=== PATIENT | female | born 1965 | race Caucasian/White ===

== ENCOUNTER 2016-10-06 15:00 | Emergency (ER) | payer OTHER ==
[~2016-10-06] VITALS: Ht 167.6 cm; Wt 64.4 kg
[2016-10-06 15:05] VITALS: BP 148/88
--- NOTE | 2016-10-06 15:30 | ED SKIN/ALLERGY COMPLAINT ---
History of Present Illness General Chief Complaint: Allergy Symptoms Stated Complaint: HIVES, ITCHY THORAT Source: patient, old records Exam Limitations: no limitations Vital Signs & Intake/Output Vital Signs & Intake/Output Vital Signs Date Time Temp Pulse Resp B/P Pulse O2 O2 Flow FiO2 Ox Delivery Rate 10/06 1630 Room Air 10/06 1505 99.1 97 20 148/88 98 Room Air Allergies Coded Allergies: erythromycin base (UNKNOWN 10/06/16) tree nut (ANAPHYLAXIS 10/06/16) codeine (GI UPSET, RASH 10/06/16) Uncoded Allergies: RAW FRUIT SOY CAROTTS (Severe, ANAPHYLAXIS 03/16/13) TREES GRASS DUST MITES CATS HAMSTERS RABBITS (ASTHMA, SWELLING 03/16/13) Reconcile Medications Methylprednisolone. (Medrol) 4 MG TAB.DS.PK 1 DP PO AD ALLERGIC REACTION 6 on day 1 then reduce by one tablet daily until gone Triage Note: PT STATES SHE HAS HIVES, ITCHING AND SCRATCHY THROAT AFTER EATING AT [facility]. STATES SHE IS ALLERGIC TO TREE NUTS, SOY PROTEIN, WHEY, RAW FRUIT. NO HIVES NOTED AT TRIAGE. PT C/O H/A ALSO Triage Nurses Notes Reviewed? yes Onset: Abrupt Duration: hour(s): (1), intermittent Timing: recent history Severity: moderate Severity Numbers: 5 Location: extremities No Modifying Factors: none Associated Symptoms: DENIES HPI: 51-year-old female with history of anemia asthma presents complaining of a one- hour history of a scratchy itchy throat associated with intermittent hives to her arms since eating at [employer] one hour ago when she had a hot dog mozzarella sticks. 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 She denies any chest tightness pain shortness of breath nausea vomiting or diarrhea. Patient states that she was driving home and came here instead when the symptoms came on. She is not taken anything for her symptoms yet. She states the hives have since resolved. She denies any facial swelling difficulty swallowing or difficulty breathing. No modifying factors or associated symptoms otherwise. Past History Travel History Traveled to [place] past 21 day No Medical History Any Pertinent Medical History? see below for history Respiratory: asthma Blood Disorders: anemia Surgical History Surgical History: none Psychosocial History What is your primary language Chadian Tobacco Use: Never used ETOH Use: occasional use Illicit Drug Use: denies illicit drug use Family History Hx Contributory? No Review of Systems Review of Systems Constitutional: Reports: see HPI. All Other Systems: Reviewed and Negative Comments Review of systems: See HPI, All other systems negative. Constitutional, no chills no fever, no malaise HEENT: No visual changes no sore throat no congestion, no ear pain Cardiovascular: No chest pain , no palpitation , Skin, no rashes, no change in skin Respiratory: No dyspnea no cough no sputum GI: No nausea no vomiting, no diarrhea : No dysuria Muscle skeletal: No joint pain, no back pain, no neck pain, Neurologic: No numbness, no headache Psych: No stress Heme/endocrine: No bruising no bleeding Immunology: No lymphadenopathy, Physical Exam Physical Exam General Appearance: well developed/nourished, no apparent distress, alert, awake , comfortable Comments: Well-developed well-nourished patient in no apparent distress. Head/Face: Atraumatic, no maxillary/frontal sinus tenderness, no facial swelling Eyes: PERRL, EOMI, no conjunctival injection Ear:External auditory canals clear Nose: atraumatic.Normal inspection Throat: Moist mucous membranes.Pharynx normal. No pharyngeal erythema/exudate seen. No stridor/drooling or assymetry. No swelling or edema. No uvular displacement no trismus Neck: Supple, no lymphadenopathy, FROM Back: FROM, Nontender Cardiovascular: Regular rate and rhythms no murmurs rubs or gallops, Respiratory: Chest nontender.There were no bony deformities, no asymmetry. No respiratory distress. Patient speaking in full complete sentences. Breath sounds clear to auscultation bilaterally: NO W/R/R ABD: Soft, nontender, no rebound or guarding Extremities: full range of motion Neuro: Alert and oriented x3 Skin: Warm & dry;No appreciable rash on exposed skin Psych: Mood affect normal, normal memory normal judgment. Progress Differential Diagnosis: abscess/cellulitis, allergic reaction, anaphylaxis, angioedema, contact dermatitis Plan of Care: Current Medications Sig/Aziza Start time Last Medication Dose Stop Time Status Admin Ondansetron HCl 4 MG ONCE ONE 10/06 1700 AC (Zofran) 10/06 1701 Labs ordered old records reviewed patient medicated with IV fluids Benadryl 25 IV sOLUMedrol 125 IV will continue to monitor. Patient speaking in full complete sentences at this time in no apparent distress 10/06/2016 5:14:12 PM repeat evaluation patient is resting comfortably she denies difficulty swallowing difficulty breathing she states the throat symptoms have resolved. Patient is noted to have no rash lungs remain clear to auscultation discussed with her plan of care need for close follow-up with her primary care physician prescription for Medrol Dosepak provided advised Benadryl every 8 hours as needed return anytime sooner with any concerns she feels comfortable plan cleared for discharge (MIGUEL ALLISON,REESE) Departure Departure Time of Disposition: 1715 Disposition: HOME OR SELF CARE Condition: Stable Clinical Impression Primary Impression: Allergic reaction Referrals: TAMANNA JURADO,KARINA Farley (PCP/Family) Additional Instructions: Benadryl 50 mg ice as needed. Medrol Dosepak as discussed-begin this tomorrow. Follow up with your primary care physician this week return anytime sooner with any concerns Departure Forms: Customer Survey General Discharge Information Prescriptions: Current Visit Scripts Methylprednisolone. (Medrol) 1 DP PO AD #1 DP 6 on day 1 then reduce by one tablet daily until gone
[2016-10-06] MEDS ORDERED: MEDROL4 M2 PO (17:16)
== END 2016-10-06 17:22 ==
LOC: ERH 15:00
DX: T78.1XXA Other adverse food reactions, not elsewhere classified, initial encounter (principal)
CPT/HCPCS: 96361; 96374; 96375; J1200; J1885; J2405; J2930